=== PATIENT | female | born 1950 | race Caucasian/White ===

== ENCOUNTER → 2016-05-25 | Outpatient (CLI) | payer MEDICARE, OTHER ==
--- NOTE | 2016-05-25 15:13 | RAD ---
Pelvis and left hip radiographs History: Left hip arthritis. Comparison: None. Findings: AP view of the pelvis including left hip. Frog-leg view of left hip. No acute fracture or dislocation is identified. Right total hip arthroplasty is seen. Left hip demonstrates mild degeneration with small marginal osteophyte formation. There is preservation of the left hip joint space. Impression: 1. No acute osseous traumatic injury identified. 2. Mild left hip degeneration. 3. Right total hip arthroplasty.
== END | disposition home or self-care (01) ==
LOC: DXRADRC 14:48
PROVIDERS: ATTEND Physician Assistant Medical
DX: M16.12 Unilateral primary osteoarthritis, left hip (principal); M25.752 Osteophyte, left hip; Z96.641 Presence of right artificial hip joint
CPT/HCPCS: 73501

== ENCOUNTER → 2017-02-02 | Outpatient (CLI) | payer MEDICARE, OTHER ==
--- NOTE | 2017-02-02 15:32 | RAD ---
2 views of the Chest 02/02/2017 2:00 AM Indication: PRE-OP EVALUATION, HIP ARTHRITIS, LUMBAGO Comparison: Chest radiograph November 17, 2009 Findings: Calcified granuloma in the left midlung are similar to prior exam. No new focal consolidation or infiltrate identified. There is no effusion or pneumothorax. The cardiomediastinal silhouette and pulmonary vasculature are within normal limits. No osseous abnormality is identified. Impression: No evidence of acute cardiopulmonary process.
== END | disposition home or self-care (01) ==
LOC: PMG 14:27
PROVIDERS: ATTEND Physician Assistant Medical
DX: Z01.818 Encounter for other preprocedural examination (principal); J84.10 Pulmonary fibrosis, unspecified; M16.10 Unilateral primary osteoarthritis, unspecified hip; M54.42 Lumbago with sciatica, left side
CPT/HCPCS: 71020

== ENCOUNTER → 2017-03-25 | Outpatient (CLI) | payer MEDICARE, OTHER ==
--- NOTE | 2017-03-25 13:20 | RAD ---
Right shoulder, 3 views, 03/25/2017: History: Chronic shoulder pain No fracture or dislocation is identified. There is minimal degenerative change at the AC joint. The periarticular soft tissues are unremarkable. IMPRESSION: No acute right shoulder abnormality is detected.
== END | disposition home or self-care (01) ==
LOC: PMG 11:50
PROVIDERS: ATTEND Physician Assistant Medical
DX: M25.511 Pain in right shoulder (principal)
CPT/HCPCS: 73030

== ENCOUNTER → 2018-02-15 | Outpatient (CLI) | payer MEDICARE, OTHER ==
--- NOTE | 2018-02-15 12:10 | RAD ---
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 Elevated TSH. COMPARISON: Images from the patient's prior 2012 exam are not available. Right thyroid: * Size (in centimeters): 1.1 x 0.4 x 0.5 * Right lobe appears hypovascular. * No dominant mass. Isthmus: * Thickness (in millimeters): 2 Left thyroid: * Size (in centimeters): 1.1 x 0.4 x 0.3 * Questionable tiny 3 mm nodule in the left lobe * Hypervascular appearance. Several small soft tissue nodules are incidentally visualized on the left. One measures 13 x 7 x 6 mm, and the other measures 11 x 8 x 6 mm. IMPRESSION: 1. Very small an hypovascular thyroid, may be related to the history of post radiation and chemotherapy. 2. Question tiny nodule in the left thyroid, about 3 mm. 3. A couple of small left soft tissue nodules are identified, likely small lymph nodes. Electronically signed by: Trevin Flower MD (02/15/2018 12:06 PM) [facility]
== END | disposition home or self-care (01) ==
LOC: US 11:04
PROVIDERS: ATTEND Physician Assistant Medical
DX: R94.6 Abnormal results of thyroid function studies (principal)
CPT/HCPCS: 76536

== ENCOUNTER → 2018-03-22 | Outpatient (CLI) | payer MEDICARE, OTHER ==
[2018-03-22] MEDS: IOHEXOL 300 MG/ML 75 ML VIAL. IV ONE (15:12)
--- NOTE | 2018-03-22 15:41 | RAD ---
PQRS Compliance Statement: One or more of the following individualized dose reduction techniques were utilized for this examination: 1. Automated exposure control 2. Adjustment of the mA and/or kV according to patient size 3. Use of iterative reconstruction technique CT HEAD WITHOUT AND WITH CONTRAST History: NUMBNESS DOWN RIGHT ARM, HEADACHE, BLURRED VISION. SWOLLEN LYMPH NODES MARKED WITH BB. HX OF LYMPHOMA 4 TIMES. Comparison: None. Procedure: Axial images are obtained of the head from the skull base through the vertex before and after 75 cc Omnipaque 300 IV contrast. Findings: The ventricles and sulci are normal for the patient's age. No mass-effect, midline shift, hemorrhage, extra-axial fluid collection, or obvious acute infarction is identified. Basilar cisterns are patent. No abnormal enhancement in the brain parenchyma is identified on the postcontrast images. Bone windows demonstrate no acute calvarial abnormality. The visualized paranasal sinuses are clear. Mastoid air cells are well aerated. IMPRESSION: No acute intracranial abnormality. Electronically signed by: Elvin Israel MD (03/22/2018 3:36 PM) [id number]
--- NOTE | 2018-03-22 16:08 | RAD ---
CT neck with contrast 03/22/2018 CLINICAL INDICATION: Right arm numbness, headache, blurred vision, swollen lymph nodes with history lymphoma. COMPARISON: None. TECHNIQUE: Multiple CT images of the neck were obtained following the intravenous administration of 75 mL Omnipaque 300. *One or more of the following individualized dose reduction techniques were utilized for this examination: 1. Automated exposure control. 2. Adjustment of the mA and/or kV according to patient size. 3. Use of iterative reconstruction technique. FINDINGS: The visualized intracranial structures, globes and orbits are unremarkable. The parotid and submandibular glands are normal in appearance. The thyroid gland is absent. The nasal cavity, nasopharynx, oral cavity, oropharynx, hypopharynx and larynx are unremarkable. No cervical lymphadenopathy by CT size criteria. There is no suspicious mass or fluid collection adjacent to the external BB marker overlying the lateral aspect of the upper left neck. There is intimal thickening throughout the bilateral common carotid arteries with mild mixed plaque of the left carotid bifurcation without high-grade narrowing. There is mild biapical pleural parenchymal scarring. IMPRESSION: 1. No discrete cervical mass or cervical lymphadenopathy to account for left neck swelling. 2. Thyroid is absent. Clinical correlation is recommended. Electronically signed by: Adam Oreilly MD (03/22/2018 4:04 PM) [facility]
== END | disposition home or self-care (01) ==
LOC: CT 14:32
PROVIDERS: ATTEND Physician Assistant Medical
DX: I65.22 Occlusion and stenosis of left carotid artery (principal); R91.8 Other nonspecific abnormal finding of lung field; Z85.79 Personal history of other malignant neoplasms of lymphoid, hematopoietic and related tissues; Z87.891 Personal history of nicotine dependence
CPT/HCPCS: 70470; 70491; Q9967

== ENCOUNTER → 2019-02-07 | Outpatient (CLI) | payer MEDICARE, OTHER ==
--- NOTE | 2019-02-08 18:22 | RAD ---
DATE: 02/07/2019. EXAM: MAMMO DOUG SCREENING BILATERAL. HISTORY: Routine mammographic screening. COMPARISON: 05/23/2013. This study was interpreted with the benefit of Computerized Aided Detection (CAD). FINDINGS: Breast Density: HETERO The breast parenchyma is heterogenously dense, which could reduce sensitivity of mammography. Breast parenchyma level C.. There are no suspicious masses, microcalcifications or architectural distortion. The parenchymal pattern is stable given differences in technique. BI-RADS CATEGORY: 1 NEGATIVE. RECOMMENDED FOLLOW-UP: 12M 12 MONTH FOLLOW-UP. PQRS compliance statement: Patient information was entered into a reminder system with a target due date 02/08/2020 for the next mammogram. Mammography is a sensitive method for finding small breast cancers, but it does not detect them all and is not a substitute for careful clinical examination. A negative mammogram does not negate a clinically suspicious finding and should not result in delay in biopsying a clinically suspicious abnormality. "Our facility is accredited by the [employer] Mammography Program."
== END | disposition home or self-care (01) ==
LOC: MAMMO 15:02
PROVIDERS: ATTEND Physician Assistant Medical
DX: Z12.31 Encounter for screening mammogram for malignant neoplasm of breast (principal)
CPT/HCPCS: 77063; 77067

== ENCOUNTER → 2020-03-12 | Outpatient (CLI) | payer MEDICARE, OTHER ==
--- NOTE | 2020-03-12 15:21 | RAD ---
EXAM: Carotid Doppler sonogram. HISTORY: Dizziness. TECHNIQUE: Higgins scale and color Doppler sonographic evaluation of the neck with spectral waveform joni lysis was performed and static images are submitted for review. FINDINGS: There is moderate atherosclerotic plaque involving the proximal right internal carotid june ry and proximal left external carotid artery and severe atherosclerotic plaque involving the proximal left internal carotid artery. The peak systolic velocity within the right common carotid artery is 121 cm/sec. The peak systolic ve locity within the right internal carotid artery is 83 cm/sec and the end diastolic velocity within th e right internal carotid artery is 22 cm/sec. The peak systolic velocity within the left common carotid artery is 135 cm/sec. The peak systolic margarito ocity within the left internal carotid artery is 86 cm/sec and the end diastolic velocity within the left internal carotid artery is 32 cm/sec. There is normal antegrade flow within both vertebral arteries. IMPRESSION: No Doppler evidence of greater than 50 percent stenosis involving the internal carotid ar teries. PQRS Compliance Statement - Stenosis calculations for CT, MR and conventional angiography are based u tiffany measurement of the distal ICA diameter in accordance with the NASCET methodology. Stenosis calcu lations for carotid ultrasound studies are derived from validated velocity criteria which are known t o correlate with the NASCET methodology. Electronically signed by: Rhonda Dowd MD (03/12/2020 3:18 PM) [id number]
== END ==
LOC: US 13:53
PROVIDERS: ATTEND Physician Assistant Medical
DX: R42 Dizziness and giddiness (principal)
CPT/HCPCS: 93880

== ENCOUNTER → 2020-09-30 | Outpatient (CLI) | payer MEDICARE ==
--- NOTE | 2020-09-30 14:50 | RAD ---
EXAM: DUAL ENERGY X-RAY ABSORPTIOMETRY (DEXA). HISTORY: Postmenopausal screening. Loss of height. FINDINGS: The lowest measured T-score is -2.4 in the left distal radius, based on a bone mineral dens ity of 0.544 g/cm^2. Refer to the worksheets for full detail. No comparison examinations are available. IMPRESSION: Low bone mass. Bone mineral density yields a T-score between -1.0 and -2.5. Fracture risk is increase d. FRAX was not calculated. METHODOLOGY: Dual energy x-ray absorptiometry was performed to measure bone mineral density. The foll owing analysis is based on the 2019 Official Positions of the International Society for Clinical Dens itometry: Measurements of the hips and the average of L1-L4 are preferred. When the spine and/or hip cannot be feasibly measured or interpreted, or in the setting of hyperparathyroidism, distal radial bone minera l density may be measured. The lumbar spine T-score is based on the average bone mineral density of L1-L4. In the setting of art ifact or anatomic abnormality, some lumbar levels may be excluded, and the remaining levels used for calculation. A single lumbar level is not used for diagnosis, and if only a single level is available for assessment, another anatomic site will be used to assign a diagnosis. The hip T-score is based on the bone mineral density measurement of the femoral neck or total proxima l femur of either side, whichever is lowest. Bilateral mean values are not used for diagnosis. The forearm T-score is derived from 33% of the distal radius of the nondominant forearm. For postmenopausal and perimenopausal women, and men age 50 or older, of all ethnic groups, T-scores are calculated through comparison of the current measurement with the NHANES III database standard fo r females aged 20-29 years. The lowest T-score of the evaluated anatomic sites is used to a ssign a diagnosis based on the World Health Organization densitometric classification. In premenopausal females and males younger than age 50, a Z-score is calculated based on population s pecific reference data for patient sex and self-reported ethnicity. Electronically signed by: Lis Bowden MD (09/30/2020 2:48 PM) [id number]
== END ==
LOC: DXRAD 12:55
PROVIDERS: ATTEND Physician Assistant Medical
DX: M81.0 Age-related osteoporosis without current pathological fracture (principal); Z78.0 Asymptomatic menopausal state
CPT/HCPCS: 77081

== ENCOUNTER 2021-05-27 07:16 | Emergency (ER) | payer MEDICARE, OTHER ==
[~2021-05-27] VITALS: Ht 152.4 cm; Wt 54.0 kg
[2021-05-27] MEDS ORDERED: IV RINGERS SOLUTION,LACTATED 1,000 ML IV ONE (07:45)
--- NOTE | 2021-05-27 07:57 | PHYS DOC ---
Past History Additional Past Medical Histor: cancer (tumor removed from neck) Past Surgical History: Hysterectomy, Other Additional Past Surgical Histo: tumor removed from neck Alcohol Use: Occasionally General Adult EDM: Chief Complaint: TREMORS HPI: HPI: Patient is a 70-year-old female coming in for tremors. Patient did try to go to her primary care provider but they sent her to the emergency department. Patient states she is having whole body tingling and tremors of both upper and lower extremities. Patient states the symptoms started 19 hours ago when she woke up around noon. Patient states that they have gotten gradually worse. She denies any baseline tremor. Patient states she was taking Neuriva for about 3 weeks and stopped a couple of days ago because the pills made her feel "icky". Denies any headaches, vision changes, tinnitus, shortness of breath, fevers, chills, night sweats. States she does not have good p.o. intake but has been try to keep up with the eating. Nuys any recent falls or injuries. Patient has history of crest. Denies tobacco or drug use, states she occasionally drinks beer on weekends. Patient states she has a history of anxiety since her and has been having increasing stress due to deteriorating health of her mother. Patient states she was going to see her primary care provider this morning for medication refills and was doing okay, states that while she was waiting in the waiting room she started having shaking. front desk supervisor staff know she was shaking and told her to go to the ER Review of Systems: Review of Systems: All other systems within normal limits except for as noted in the HPI Allergies: Allergies: Allergies Coded Allergies Type Severity Reaction Last Updated Verified aspirin Allergy Unknown 03/22/18 Yes codeine Allergy Unknown 03/22/18 Yes ibuprofen Allergy Unknown 03/22/18 Yes lactase Allergy Unknown 03/22/18 Yes latex Allergy Unknown 03/22/18 Yes morphine Allergy Unknown 03/22/18 Yes oxycodone Allergy Unknown 03/22/18 Yes propoxyphene Allergy Unknown 03/22/18 Yes tetanus immune globulin Allergy Unknown 03/22/18 Yes tramadol Allergy Unknown 03/22/18 Yes Physical Exam: PE: Constitutional: Well developed, well nourished, no acute distress, non-toxic appearance. [] HENT: Normocephalic, atraumatic, bilateral external ears normal, nose normal. [] Eyes: PERRLA, conjunctiva normal, no discharge. [] Neck: No rigidity, supple, no stridor. [] Cardiovascular: Regular rate and rhythm, brisk cap refill [] Lungs & Thorax: Non labored symmetric respirations, no tachypnea or respiratory distress [] Abdomen: Soft, nondistended. Skin: Warm, dry, no erythema, no rash. [] Back: Unremarkable Extremities: No deformities, range of motion grossly intact, no lower extremity edema [] Neurologic: Alert and oriented X 3, no focal deficits noted. Upper and lower extremity tremors [] Psychologic: Affect normal, judgement normal, mood normal. [] Current Patient Data: Vital Signs: Vital Signs Date Time Temp Pulse Resp B/P (MAP) Pulse Ox O2 Delivery O2 Flow Rate FiO2 05/27/21 07:22 98.1 98 24 142/82 (102) 99 Room Air EKG: EKG: [] Radiology/Procedures: Radiology/Procedures: [place] [address] IMAGING REPORT Signed PATIENT: ABBI HANNON AACCOUNT: [id number] : 1950 LOCATION: ER AGE: 70 SEX: F EXAM STATUS: REG ER ORD. PHYSICIAN: JIMENA OLIVA MD REASON: tremors PROCEDURE: CT HEAD WO CONTRAST EXAMINATION: CT HEAD/BRAIN WO CLINICAL HISTORY: Tremors. TECHNIQUE: Serial axial images without IV contrast were obtained from the vertex to the foramen magnum. CT Dose Reduction Employed: One or more of the following individualized dose reduction techniques were utilized for this examination: 1. Automated exposure control 2. Adjustment of the mA and/or kV according to patient size 3. Use of iterative reconstruction technique. COMPARISON: 03/22/2018 FINDINGS: Acute Change: No evidence of an acute infarct or other acute parenchymal process. Hemorrhage: No evidence of acute intracranial hemorrhage. Mass Lesion/Mass Effect: No evidence of intracranial mass or extraaxial fluid collection. No significant mass effect. Chronic Change: Scattered patchy foci of hypoattenuation in the supratentorial white matter, nonspecific but likely represents minimal microvascular ischemia. Atherosclerotic calcification of the intracranial portion of the bilateral in ternal carotid arteries. Parenchyma: Mild generalized volume loss. Ventricles: Ventricular enlargement concordant with degree of parenchymal volume loss. Paranasal Sinuses and Skull Base: Visualized paranasal sinuses clear. Visualized skull base and soft tissues unremarkable. IMPRESSION: No evidence of acute intracranial abnormality. Electronically signed by: Laurent Esposito DO (05/27/2021 8:20 AM) [id number] DICTATED AND SIGNED BY: LAURENT ESPOSITO DO DATE: 05/27/21 0816 CC: JIMENA OLIVA MD; IDALIA KLINE ~ [] Heart Score: C/O Chest Pain: No Risk Factors: Risk Factors: DM, Current or recent (<one month) smoker, HTN, HLP, family history of CAD, obesity. Risk Scores: Score 0 - 3: 2.5% MACE over next 6 weeks - Discharge Home Score 4 - 6: 20.3% MACE over next 6 weeks - Admit for Clinical Observation Score 7 - 10: 72.7% MACE over next 6 weeks - Early Invasive Strategies Course & Med Decision Making: Course & Med Decision Making Pertinent Labs and Imaging studies reviewed. (See chart for details) Work-up unremarkable. Patient feeling better after IV fluids and lorazepam. Discussed possibility of anxiety due to increased personal stress. Patient will follow up with her primary care provider. [] Melissa Disclaimer: Melissa Disclaimer: This electronic medical record was generated, in whole or in part, using a voice recognition dictation system. Departure Departure: Impression: Primary Impression: Occasional tremors Referrals: IDALIA KLINE (PCP) Patient Instructions: Anxiety and Panic Attacks JIMENA OLIVA MD May 27, 2021 07:57
[2021-05-27 08:20] LABS: BASO # 0.1 x10^3/uL (0.0-0.2); BASO % 1 % (0-3); EOS # 0.1 x10^3/uL (0.0-0.7); EOS % 1 % (0-3); HEMATOCRIT 44.6 % (36.0-47.0); HEMOGLOBIN 15.1 g/dL (12.0-15.5); LYMPH # 2.4 x10^3/uL (1.0-4.8); LYMPH % 34 % (24-48); MEAN CORPUSCULAR HEMOGLOBIN 32 pg (25-35); MEAN CORPUSCULAR HGB CONC 34 g/dL (31-37); MEAN CORPUSCULAR VOLUME 95 fL (79-100); MONO # 0.4 x10^3/uL (0.0-1.1); MONO % 6 % (0-9); NEUT # 4.2 x10^3uL (1.8-7.7); NEUT % 58 % (31-73); PLATELET COUNT 296 x10^3/uL (140-400); RED BLOOD COUNT 4.67 x10^6/uL (3.50-5.40); RED CELL DISTRIBUTION WIDTH 13.5 % (11.5-14.5); WHITE BLOOD COUNT 7.3 x10^3/uL (4.0-11.0)
--- NOTE | 2021-05-27 08:22 | RAD ---
EXAMINATION: CT HEAD/BRAIN WO CLINICAL HISTORY: Tremors. TECHNIQUE: Serial axial images without IV contrast were obtained from the vertex to the foramen magnu m. CT Dose Reduction Employed: One or more of the following individualized dose reduction techniques valeriano e utilized for this examination: 1. Automated exposure control 2. Adjustment of the mA and/or kV ac cording to patient size 3. Use of iterative reconstruction technique. COMPARISON: 03/22/2018 FINDINGS: Acute Change: No evidence of an acute infarct or other acute parenchymal process. Hemorrhage: No evidence of acute intracranial hemorrhage. Mass Lesion/Mass Effect: No evidence of intracranial mass or extraaxial fluid collection. No signific ant mass effect. Chronic Change: Scattered patchy foci of hypoattenuation in the supratentorial white matter, nonspeci fic but likely represents minimal microvascular ischemia. Atherosclerotic calcification of the intrac ranial portion of the bilateral internal carotid arteries. Parenchyma: Mild generalized volume loss. Ventricles: Ventricular enlargement concordant with degree of parenchymal volume loss. Paranasal Sinuses and Skull Base: Visualized paranasal sinuses clear. Visualized skull base and soft tissues unremarkable. IMPRESSION: No evidence of acute intracranial abnormality. Electronically signed by: Laurent Victoria DO (05/27/2021 8:20 AM) [id number]
[2021-05-27 08:29] LABS: CALCIUM 9.5 mg/dL (8.5-10.1); CREATININE 0.9 mg/dL (0.6-1.0); GFR 61.9
[2021-05-27 08:36] LABS: ALBUMIN 3.8 g/dL (3.4-5.0); ALBUMIN/GLOBULIN RATIO 1.3 (1.0-1.7); TOTAL BILIRUBIN 0.2 mg/dL (0.2-1.0); TOTAL PROTEIN 6.7 g/dL (6.4-8.2)
[2021-05-27 08:44] LABS: BGAS PH 7.44 (7.35-7.45)
[2021-05-27 09:44] LABS: BARBITURATES NEG (NEG); BENZODIAZEPINES NEG (NEG); CANNABINOIDS NEG (NEG); COCAINE NEG (NEG); METHADONE NEG (NEG); OPIATES NEG (NEG); PHENCYCLIDINE NEG (NEG)
[2021-05-27 09:45] LABS: AMPHETAMINE/METHAMPHETAMINE NEG (NEG)
[2021-05-27 09:57] LABS: BACTERIA,URINE 0 /HPF (0-FEW); CLARITY,URINE CLEAR; COLOR,URINE YELLOW; GLUCOSE,URINE NEG (NEG); NITRITE,URINE NEG (NEG); SQUAMOUS EPITHELIAL CELL,UR MOD /LPF; UROBILINOGEN,URINE 0.2 mg/dL (0.2 mg/dL)
[2021-05-27 09:59] VITALS: BP 127/65
== END 2021-05-27 10:39 | disposition home or self-care (01) ==
LOC: ER 07:16
DX: R25.1 Tremor, unspecified (principal); Z88.5 Allergy status to narcotic agent; Z91.040 Latex allergy status; Z91.011 Allergy to milk products; Z88.7 Allergy status to serum and vaccine; Z88.8 Allergy status to other drugs, medicaments and biological substances
CPT/HCPCS: 36415; 70450; 80053; 80307; 81001; 82550; 82803; 83605; 83735; 83874; 84100; 84484; 85025; 87086; 87147; 96360; 99285; J7120